=== PATIENT | female | born 1995 | race Caucasian/White ===

== ENCOUNTER 2023-05-17 19:14 | Emergency (ER) | payer SELFPAY ==
[2023-05-17 21:13] LABS: Absolute Basophils 0.1 K/uL (0-0.5); Absolute Eosinophils 0.1 K/uL (0-0.5); Absolute Lymphocytes (CBC) 2.1 K/uL (0.7-4.9); Absolute Monocytes 0.5 K/uL (0.1-1.3); Absolute Neutrophil 5.4 K/uL (1.8-8.0); Basophils % 1.4 % (0-1.3); Eosinophils % 1.6 % (0-4.4); Hematocrit 41.4 % (36.0-45.0); Hemoglobin 13.7 g/dL (12.0-15.0); Lymphocytes % 25.7 % (15.3-44.8); MCH 27.5 pg (27.0-35.0); MCV 83.2 fL (80-100); MPV 8.2 fL (7.6-11.3); Monocytes % 6.4 % (3.3-12.3); Neutrophils % 64.9 % (41.7-73.7); Platelets 267 thou/uL (152-406); RBC Red Blood Cell Count 4.97 M/uL (3.86-4.86); Red Cell Distribution Width 14.3 % (12.1-15.2)
[2023-05-17 21:29] LABS: Albumin 3.2 g/dL (3.4-5.0); Albumin/Globulin Ratio 0.8 (1.1-1.8); Anion Gap 8.3 mEq/L (5.0-15.0); Bilirubin Total 0.4 mg/dL (0.2-1.0); Globulin 4.2 g/dL (2.3-3.5); Potassium 3.3 mEq/L (3.5-5.1); Protein, Total 7.4 g/dL (6.4-8.2)
--- NOTE | 2023-05-17 21:39 | ER ---
Nurse's Notes [facility] Name: Patricia Velasquez Age: 27 yrs Sex: Female : 1995 Arrival Date: 05/17/2023 Time: 19:14 Bed DX3 Private MD: Diagnosis: Needlestick injury to right thumb Presentation: 05/16 19:45 Chief complaint: Patient states: I work at [employer] and I had just given a patient an ha1 injection when by accident I stick my self with an used needle. Coronavirus screen: Vaccine status: Patient reports receiving the 2nd dose of the covid vaccine. Pfizer. Ebola Screen: No symptoms or risks identified at this time. Initial Sepsis Screen: Does the patient meet any 2 criteria? No. Patient's initial sepsis screen is negative. Does the patient have a suspected source of infection? No. Patient's initial sepsis screen is negative. Risk Assessment: Do you want to hurt yourself or someone else? Patient reports no desire to harm self or others. Onset of symptoms was May 17, 2023. 19:45 Method Of Arrival: Ambulatory ha1 19:45 Acuity: KURT 4 ha1 Triage Assessment: 19:49 General: Appears comfortable, Behavior is calm, cooperative. Pain: Denies pain. Neuro: ha1 Level of Consciousness is awake, alert, obeys commands, Oriented to person, place, time, situation. Cardiovascular: Patient's skin is warm and dry. Respiratory: Airway is patent Respiratory effort is even, unlabored, Respiratory pattern is regular, symmetrical. Historical: - Allergies: 19:49 No Known Allergies; ha1 - PMHx: 19:49 None; ha1 - Immunization history:: Adult Immunizations not up to date. - Infectious Disease History:: Denies. - Social history:: Smoking status: Patient denies any tobacco usage or history of. Screenin:02 [facility] ED Fall Risk Assessment (Adult) History of falling in the last 3 months, cm10 including since admission No falls in past 3 months (0 pts) Confusion or Disorientation No (0 pts) Intoxicated or Sedated No (0 pts) Impaired Gait No (0 pts) Mobility Assist Device Used No (0 pt) Altered Elimination No (0 pt) Score/Fall Risk Level 0 - 2 = Low Risk Oriented to surroundings, Maintained a safe environment, Hourly rounding (assess needs \T\ fall precautionary measures) done. Abuse screen: Denies threats or abuse. Denies injuries from another. Nutritional screening: No deficits noted. Tuberculosis screening: No symptoms or risk factors identified. Assessment: 21:51 Reassessment: Patient appears in no apparent distress at this time. Patient and/or cm10 family updated on plan of care and expected duration. Pain level reassessed. Patient is alert, oriented x 3, equal unlabored respirations, skin warm/dry/pink. Vital Signs: 19:45 BP 170 / 92; Pulse 87; Resp 17 S; Temp 97.9; Pulse Ox 100% on R/A; Weight 136.08 kg; ha1 Height 5 ft. 4 in. ; 19:45 Body Mass Index 51.49 (136.08 kg, 162.56 cm) 1 ED Course: 19:17 Patient arrived in ED. mr 19:49 Triage completed. 1 20:11 Buzz Flores MD is Attending Physician. sp3 21:01 Adrienne Mcclelland, RN is Primary Nurse. cm10 21:01 CMP Sent. cm10 21:01 HIV Ag/Ab Combo Sent. cm10 21:01 CBC with Diff Sent. cm10 21:01 Hep Panel Sent. cm10 21:01 Arm band placed on Patient placed in an exam room. cm10 21:02 Patient has correct armband on for positive identification. Provided Education on: ER cm10 process and procedures. . 21:03 No provider procedures requiring assistance completed. Initial lab(s) drawn, by tx, cm10 sent to lab. Patient did not have IV access during this emergency room visit. Administered Medications: No medications were administered Medication: 21:03 VIS not applicable for this client. cm10 Outcome: 21:39 Discharge ordered by . sp3 21:51 Discharged to home ambulatory, with friend, cm10 21:51 Condition: good 21:51 Discharge instructions given to patient, Instructed on discharge instructions, follow up and referral plans. Demonstrated understanding of instructions, follow-up care, 21:51 Patient left the ED. cm10 Signatures: Alexa Hickey, Reg Reg mr Buzz Flores MD MD sp3 Maggie Oakes, RN RN [facility] Adrienne Mcclelland RN RN 10
--- NOTE | 2023-05-17 21:39 | EDPHYS ---
Physician Documentation [facility] Name: Patricia Velasquez Age: 27 yrs Sex: Female : 1995 Arrival Date: 05/17/2023 Time: 19:14 Bed DX3 Private MD: ED Physician Buzz Flores HPI: 05/16 20:47 This 27 yrs old Female presents to ER via Ambulatory with complaints of Needle Stick sp3 Exposure. 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 Needle was not in any vein or other direct blood source. Patient's patient does not have any known transferable infectious diseases. Patient has no other past medical history or known infectious diseases herself. Review of systems otherwise negative for headache, fever, URI symptoms, chest pain, shortness of breath, wheezing, abdominal, nausea, vomiting, rash, or any other signs or symptoms on ROS at this time.. Historical: - Allergies: 19:49 No Known Allergies; ha1 - PMHx: 19:49 None; ha1 - Immunization history:: Adult Immunizations not up to date. - Infectious Disease History:: Denies. - Social history:: Smoking status: Patient denies any tobacco usage or history of. ROS: 20:49 Constitutional: Negative for fever, chills, and weight loss, Eyes: Negative for injury, sp3 pain, redness, and discharge, ENT: Negative for injury, pain, and discharge, Neck: Negative for injury, pain, and swelling, Cardiovascular: Negative for chest pain, palpitations, and edema, Respiratory: Negative for shortness of breath, cough, wheezing, and pleuritic chest pain, Abdomen/GI: Negative for abdominal pain, nausea, vomiting, diarrhea, and constipation, Back: Negative for injury and pain, Skin: Negative for injury, rash, and discoloration, Neuro: Negative for headache, weakness, numbness, tingling, and seizure, Psych: Negative for depression, anxiety, suicide ideation, homicidal ideation, and hallucinations, Allergy/Immunology: Negative for hives, rash, and allergies, Endocrine: Negative for neck swelling, polydipsia, polyuria, polyphagia, and marked weight changes, Hematologic/Lymphatic: Negative for swollen nodes, abnormal bleeding, and unusual bruising, 20:49 All other systems are negative, Exam: 20:49 Constitutional: This is a well developed, well nourished patient who is awake, alert, sp3 and in no acute distress. Head/Face: Normocephalic, atraumatic. Eyes: Pupils equal round and reactive to light, extra-ocular motions intact. Lids and lashes normal. Conjunctiva and sclera are non-icteric and not injected. Cornea within normal limits. Periorbital areas with no swelling, redness, or edema. Neck: Trachea midline, no thyromegaly or masses palpated, and no cervical lymphadenopathy. Supple, full range of motion without nuchal rigidity, or vertebral point tenderness. No Meningismus. Chest/axilla: Normal chest wall appearance and motion. Nontender with no deformity. No lesions are appreciated. Cardiovascular: Regular rate and rhythm with a normal S1 and S2. No gallops, murmurs, or rubs. Normal PMI, no JVD. No pulse deficits. Respiratory: Lungs have equal breath sounds bilaterally, clear to auscultation and percussion. No rales, rhonchi or wheezes noted. No increased work of breathing, no retractions or nasal flaring. Abdomen/GI: Soft, non-tender, with normal bowel sounds. No distension or tympany. No guarding or rebound. No evidence of tenderness throughout. Skin: Warm, dry with normal turgor. Normal color with no rashes, no lesions, and no evidence of cellulitis. MS/ Extremity: Pulses equal, no cyanosis. Neurovascular intact. Full, normal range of motion. Vital Signs: 19:45 BP 170 / 92; Pulse 87; Resp 17 S; Temp 97.9; Pulse Ox 100% on R/A; Weight 136.08 kg; ha1 Height 5 ft. 4 in. ; 19:45 Body Mass Index 51.49 (136.08 kg, 162.56 cm) ha1 MDM: 20:16 Patient medically screened. sp3 20:49 Data reviewed: vital signs, nurses notes, lab test result(s). ED course: Patient has no sp3 visible injury from the needlestick. She contacted her occupational health who advised her to come here for evaluation. We do not have a rapid HIV available however I have ordered a standard HIV test, hepatitis panel, CBC and CMP. I have urged patient to contact her occupational health so the patient's patient can also be tested. Patient declined HIV medication initiation after thorough consultation. Her injury is classified as low risk and we will await testing results before starting anything.. 21:37 ED course: Hepatitis and HIV tests have a prolonged turnaround time. I advised patient sp3 of this and she states that she will call back tomorrow and get results. We will of course follow-up as well. Patient will be discharged home at this time with the understanding that her tests are still outstanding.. 05/16 20:40 Order name: Hep Panel sp3 05/16 20:40 Order name: CBC with Diff sp3 05/16 20:40 Order name: HIV Ag/Ab Combo sp3 05/16 20:43 Order name: CMP; Complete Time: 21:33 sp3 Administered Medications: No medications were administered Disposition Summary: 05/17/23 21:39 Discharge Ordered Notes: Location: Home sp3 Condition: Stable sp3 Diagnosis - Needlestick injury to right thumb sp3 Followup: sp3 - With: Private Physician - When: Upon discharge from the Emergency Department - Reason: Continuance of care Discharge Instructions: - Discharge Summary Sheet sp3 - Needlestick and Sharps Injury sp3 Forms: - Medication Reconciliation Form sp3 - Thank You Letter sp3 - Antibiotic Education sp3 - Prescription Opioid Use sp3 - Patient Portal Instructions sp3 - Leadership Thank You Letter sp3 Signatures: Dispatcher [employer] EDBuzz Medrano MD MD sp3 Maggie Oakes RN RN ha1 Corrections: (The following items were deleted from the chart) 20:40 20:40 Acute Hepatitis Panel+SC.LAB.BRZ ordered. EDMS EDMS 20:40 20:40 CBC+H.LAB.BRZ ordered. EDMS EDMS 20:40 20:40 HIV Ag/Ab Combo+SC.LAB.BRZ ordered. EDMS EDMS
[2023-05-17 22:48] LABS: Hepatitis B Core IgM Nonreactive (Nonreactive); Hepatitis B surface AG Interp. Nonreactive (Nonreactive); Hepatitis C Virus Ab Nonreactive (Nonreactive)
[2023-05-17 22:49] LABS: HBsAG Nonreactive Report Report
[2023-05-18 00:35] VITALS: BP 170/92; TEMP 97.9; O2SAT 100
== END 2023-05-17 21:51 | disposition home or self-care (01) ==
LOC: ER 19:14
DX: S61.031A Puncture wound without foreign body of right thumb without damage to nail, initial encounter (principal); W46.1XXA Contact with contaminated hypodermic needle, initial encounter
CPT/HCPCS: 36415; 80053; 80074; 85025; 87389; 99283